=== PATIENT | female | born 1985 | race Caucasian/White ===

== ENCOUNTER 2023-09-08 21:34 | Emergency (ER) | payer OTHER, SELFPAY ==
[2023-09-08 21:37] VITALS: BP 107/84; BMI 21.0
[2023-09-08 22:03] LABS: % Basophils 0.2 % (0-2); % Eosinophils 0.1 % (0-6); % Immature Granulocytes 0.4 % (0-0.5); % Lymphocytes 12.7 % (20.5-51.1); % Monocytes 4.1 % (1.7-9.3); % Neutrophils 82.5 % (42.2-75.2); Absolute Immature Granulocytes 0.1 10^3/uL (0-0.05); Absolute Lymphocytes 2.2 10^3/uL (1.2-3.4); Absolute Monocytes 0.7 10^3/uL (0.1-0.6); Absolute Neutrophils 14.3 10^3/uL (1.4-6.5); Hematocrit 43.5 % (37.0-47.0); Hemoglobin 15.1 g/dL (12.0-16.0); Mean Corp Hgb Conc. 34.7 g/dL (33.0-37.0); Mean Corpuscular Hgb 31.9 pg (27.0-31.0); Mean Platelet Volume 9.4 fL (7.4-10.4); Nucleated Red Blood Cells % 0 %; Platelet Count 321 10^3/uL (130-400); Red Blood Cell Count 4.73 10^6/uL (4.20-5.40); Red Cell Dist. Width 12.3 % (11.5-14.5); Urine Albumin Trace (Neg - Trace); Urine Bilirubin Negative (Negative); Urine Character Clear (Clear); Urine Color Yellow; Urine Glucose Negative (Negative); Urine Ketone Trace (Negative); Urine Leukocyte Trace (Negative); Urine Nitrite Negative (Negative); Urine Occult Blood Negative (Negative); Urine Specific Gravity 1.015 (<1.030); Urine Urobilinogen Negative (Neg - 1+); White Blood Cell Count 17.4 10^3/uL (4.8-10.8)
[2023-09-08 22:10] LABS: Urine Squamous Cell >30 /LPF (Few)
[2023-09-08 22:11] LABS: Urine Red Blood Cell None Seen /HPF (0-2); Urine White Cell 0-2 /HPF (0-5)
[2023-09-08 22:15] LABS: HCG, Serum Qualitative Screen Negative
[2023-09-08 22:16] LABS: Amphetamines Negative (Negative); Barbiturates Negative (Negative); Benzodiazepines Negative (Negative); Buprenorphine Negative (Negative); Cocaine Negative (Negative); Marijuana Positive (Negative); Methadone Negative (Negative); Methamphetamines Negative (Negative); Opiates Negative (Negative); Phencyclidine Negative (Negative); Tricyclic Antidepressants Negative (Negative)
[2023-09-08 22:18] LABS: Alcohol 22 mg/dl; Blood Urea Nitrogen 11 mg/dl (7-17); Calcium 9.2 mg/dl (8.4-10.2); Carbon Dioxide 28 mmol/L (22-30); Chloride 102 mmol/L (98-107); Estimated Creatinine Clearance 100 ml/min; Glucose 94 mg/dl (70-99); Sodium 142 mmol/L (135-145); eGFR > 60.00
--- NOTE | 2023-09-08 23:00 | ED.GENMED ---
History of Present Illness
General
Chief Complaint: Anxiety
Source: patient
Time Seen by Provider: 09/08/23 22:45
Travel History
Have you had any contact with someone who has COVID-19?: No
Do you have any symptoms of coronavirus? Fever > 100 degrees, chills, cough, shortness of breath, sore throat, loss of taste or smell, muscle aches, or headache?: No
History of Present Illness
History of Present Illness:
37 yr old female with reported anxiety leading to n/v an din ability to tolerate po. She has had similar episodes like this in past, always related to exacerbating anxiety. NO SI or HI, has seen therapist through [facility] in the past, declines
consultation with crisis team or referral to psychiatrist at this time. She feels that her symptoms are in part related to her anxiety but also related to her metabolism, and plans to see a supervisor [employer] shortly. She presents to the ED because she
wants to have some relief from her anxiety. She has a prior history of alcohol use disorder and states that she did have 1 drink last night, but called her sponsor and ex partner, and feels safe. She denies recent drug use with the exception of
marijuana Gummies to help ease her anxiety. She denies chest pain, shortness of breath, abdominal pain, back pain, headache, dizziness, or other physical complaints. She does however report repeated episodes of nonbloody vomiting.
Past History
Past History
ED Past Medical History: Psychiatric (Bipolar, Anxiety) and Other (Migraine headaches)
ED Past Surgical History: Tonsilectomy (And adnoids) and Other ()
Social History
Tobacco: Smoker
Alcohol: Former
Drug: Former user
Personal: Single
Living: other ([facility])
Employment: Employed
Family History
Family History: Other (no Significant)
Phy Exam
Physical Exam
Physical Exam:
GENERAL: Alert , in no apparent distress
EYE: pupils equal and reactive
NECK: Supple, no significant adenopathy.
ENT: o/p clr, mmm.
CARDIAC: Regular rate and rhythm .
LUNGS: Clear breath sounds bilaterally, no acute respiratory distress, no wheezes/rales/rhonchi
ABDOMEN: Soft, without focal tenderness, no r/g, no cvat
NEUROLOGICAL: Alert and oriented, no focal neuro deficits
SKIN: Warm and dry, skin intact.
MUSCULOSKELETAL: No edema, well perfused.
PSYCH: Tearful at times, anxious, denies SI or HI
Course
Orders/Labs/Results
Orders:
Orders
09/08/23 21:45
EKG [Electrocardiogram (*1)] Urgent
Reason for Study: Vertigo / Dizzy
EKG- Treatment ONCE
Test Result ONCE
09/08/23 21:47
Alcohol Urgent
Basic Metabolic Panel Urgent
Complete Blood Count/With Diff Urgent
HCG, Serum Qualitative Screen Urgent
UA [Urinalysis] Urgent
Date Specimen was Collected: 09/08/23
Time Specimen was Collected: 21:45
Urine Drug Abuse Screen Urgent
Date Specimen was Collected: 09/08/23
Time Specimen was Collected: 21:45
Urine Microscopic Urgent
Date Specimen was Collected: 09/08/23
Time Specimen was Collected: 21:45
09/08/23 22:59
Lorazepam [Ativan] 1 mg PO NOW STA
Abnormal Lab Results
09/08/23
21:47
WBC 17.4 H 10^3/uL
(4.8-10.8)
MCH 31.9 H pg
(27.0-31.0)
Abs Immat Gran (auto) 0.1 H 10^3/uL
(0-0.05)
Absolute Neuts (auto) 14.3 H 10^3/uL
(1.4-6.5)
Absolute Monos (auto) 0.7 H 10^3/uL
(0.1-0.6)
Neutrophils % 82.5 H %
(42.2-75.2)
Lymphocytes % 12.7 L %
(20.5-51.1)
Urine Ketones Trace A
(Negative)
Ur Leukocyte Esterase Trace A
(Negative)
U Marijuana (THC) Screen Positive H
(Negative)
09/08/23 21:47
09/08/23 21:47
Vital Signs
Initial and Last Documented VS:
Initial Vital Signs
Temp Pulse Resp BP Pulse Ox
98.5 F 75 16 107/84 99
09/08/23 21:37 09/08/23 21:37 09/08/23 21:37 09/08/23 21:37 09/08/23 21:37
Last Documented Vital Signs
Temp Pulse Resp BP Pulse Ox
98.5 F 72 18 107/84 99
09/08/23 21:37 09/09/23 01:10 09/09/23 01:10 09/08/23 21:37 09/09/23 01:10
*Critical Care Note
Total Time (30-74mins, 75-104mins- exclusive of procedures): Not Applicable
Update Note
Update Note:
Patient presents to the Emergency Department with
Number and Complexity of Problems Addressed at the Encounter
� Chronic conditions affecting care:
� Acute Exacerbation and/or Progression of Chronic Illness:
� Differential Diagnosis includes:
Amount and/or Complexity of Data to be Reviewed and Analyzed
� I performed an independent evaluation of and my interpretation is:
EKG:
CT:
Xrays:
Laboratory Studies: Nonspecific white blood cell count elevation, no fever, tenderness, or other specific findings to suggest infection.
Other:
� Review of other/old records reveals:
� Clinical information was obtained by an independent historian:
� Prescriptions/Medications Considered but not given:
� Further testing considered but not performed:
Risk of Complications and/or Morbidity or Mortality of Patient Management
� Social determinants of health affecting care:
� Discussion with other providers (PCP, Hospitalists, Consultants, etc):
� Escalation of care including admission/observation vs risk of discharge considered: Discussed with patient options to treat anxiety and nausea� She elects a one-time dose of Ativan here until she can see her doctor tomorrow.
She again denies SI or HI and declines crisis. I highly doubt pancreatitis as a cause of her reported vomiting as patient does not have any pain, and no further vomiting noted after dose of Ativan here. (She does not want to wait for a lipase
level here.) No acute abdominal findings noted, no signs or symptoms to suggest increased intracranial pressure. Patient seems to be certain that her ongoing anxiety is a trigger for this vomiting. Discussed with her the importance of follow-up
and reasons to return the emergency department.
ED Attending Note
-
Portions of this chart may have been created with voice recognition software.� Occasional wrong word or��sound alike� substitutions may have occurred due to the inherent limitations of voice recognition software.
Discharge Plan
Departure
Patient Disposition: Home (Routine Discharge)
Date of Disposition: 09/09/23
Time of Disposition: 00:46
Patient with high blood pressure during this ER visit?: Yes
Condition: Good
Discharge Problem:
Vomiting, Anxiety
Instructions: Anxiety, Adult (DC), BLOOD PRESSURE, Acute Nausea and Vomiting
Prescriptions:
No Action
No Current Medications
0
Referrals:
NONE,* [Family Provider] -
Activity Restrictions/Additional Instructions:
PLEASE SEE YOUR DOCTOR TOMORROW. IF YOU DEVELOP ABDOMINAL PAIN, CHEST PAIN, TROUBLE BREATHING, DIZZINESS, FEVER, OR OTHER WORRISOME SIGNS, PLEASE RETURN TO THE ER IMMEDIATELY. IF YOU HAVE THOUGHTS OF WANTING TO , PLEASE CALL 911.
Interventions
Interventions:
*Risk Screen - Suicide Last Done: 09/08/23 21:37
*General Assessment Last Done: 09/09/23 01:10
*Neglect/Abuse Screening Last Done: 09/08/23 21:37
ED- Fall Risk Assessment Last Done: 09/08/23 21:37
*ED COVID-19 Vaccine History Last Done: 09/08/23 21:37
*Nursing Disposition Last Done: 09/09/23 01:10
ED-Psychological Assessment Last Done: 09/08/23 23:15
Discharge Date and Time
Discharge Date/Time: 09/09/23 01:17
[2023-09-08] MEDS: ATIVAN 1 MG PO (23:12)
== END 2023-09-09 01:17 | disposition home or self-care (01) ==
LOC: EMR 21:34
PROVIDERS: Emergency Medicine; EMERGENCY PHYSICIAN Emergency Medicine
DX: F41.9 Anxiety disorder, unspecified (principal); R11.2 Nausea with vomiting, unspecified; F17.200 Nicotine dependence, unspecified, uncomplicated
CPT/HCPCS: 99284; 80048; 80306; 81003; 81015; 82077; 84703; 85025; 93005

== ENCOUNTER 2023-10-19 16:22 | Emergency (ER) | payer OTHER, BC, SELFPAY ==
[2023-10-19 16:35] VITALS: BP 136/83
[2023-10-19 16:53] LABS: % Basophils 0.2 % (0-2); % Eosinophils 0.2 % (0-6); % Immature Granulocytes 0.1 % (0-0.5); % Lymphocytes 28.3 % (20.5-51.1); % Monocytes 5.2 % (1.7-9.3); Absolute Lymphocytes 2.5 10^3/uL (1.2-3.4); Absolute Monocytes 0.5 10^3/uL (0.1-0.6); Absolute Neutrophils 5.8 10^3/uL (1.4-6.5); Hematocrit 42.5 % (37.0-47.0); Hemoglobin 14.9 g/dL (12.0-16.0); Mean Corp Hgb Conc. 35.1 g/dL (33.0-37.0); Mean Corpuscular Volume 91.2 fL (81.0-99.0); Mean Platelet Volume 9.7 fL (7.4-10.4); Nucleated Red Blood Cells % 0 %; Platelet Count 291 10^3/uL (130-400); Red Blood Cell Count 4.66 10^6/uL (4.20-5.40); Red Cell Dist. Width 11.9 % (11.5-14.5); White Blood Cell Count 8.8 10^3/uL (4.8-10.8)
[2023-10-19 17:04] LABS: HCG, Serum Qualitative Screen Negative
[2023-10-19 17:09] LABS: ALT (SGPT) 17 U/L (0-35); AST (SGOT) 21 U/L (14-36); Albumin 4.7 g/dl (3.5-5.0); Alkaline Phosphatase 38 U/L (38-126); Blood Urea Nitrogen 14 mg/dl (7-17); Calcium 9.4 mg/dl (8.4-10.2); Carbon Dioxide 26 mmol/L (22-30); Glucose 121 mg/dl (70-99); Sodium 139 mmol/L (135-145); Total Bilirubin 0.5 mg/dl (0.2-1.3); Total Protein 7.2 g/dl (6.3-8.2); eGFR > 60.00
[2023-10-19 17:10] LABS: Lipase 88 U/L (23-300)
[2023-10-19 17:13] LABS: Chloride 105 mmol/L (98-107)
[2023-10-19] MEDS: OMNIPAQUE 50 ML PO (18:04)
--- NOTE | 2023-10-19 18:45 | ED.GENMED ---
History of Present Illness
General
Chief Complaint: Abdominal Pain
Source: patient
Exam Limitations: none
Time Seen by Provider: 10/19/23 17:47
Travel History
Have you had any contact with someone who has COVID-19?: No
Do you have any symptoms of coronavirus? Fever > 100 degrees, chills, cough, shortness of breath, sore throat, loss of taste or smell, muscle aches, or headache?: No
History of Present Illness
History of Present Illness:
38-year-old female recurrent episodes of epigastric discomfort nausea and vomiting. Typically is worse after a infectious issue. Has been worse the last week. But has been intermittently in the past also. Denies back pain fever. No significant
change in bowels.
Past History
Past History
ED Past Medical History: Psychiatric (Bipolar, Anxiety) and Other (Migraine headaches)
ED Past Surgical History: Tonsilectomy (And adnoids) and Other ()
Social History
Tobacco: Smoker
Alcohol: Former
Drug: Former user
Personal: Single
Living: other ([facility] house)
Employment: Employed
Family History
Family History: Other (no Significant)
Review of Systems
Review of Systems
All Other Systems: Not applicable
Respiratory: Reports no symptoms
Cardiac: Reports no symptoms
: Reports no symptoms
Phy Exam
Physical Exam
Physical Exam:
GENERAL: Alert and oriented in no apparent distress
EYE: Orbits normal.
NECK: Supple
CARDIAC: Regular rate and rhythm without any obvious murmurs.
LUNGS: Clear breath sounds,normal
ABDOMEN: Soft, minimal epigastric tenderness. No rebound or guarding no mass or hernia
NEUROLOGICAL: Alert and oriented , grossly non-focal
SKIN: Warm and dry, no rash or lesion, no discoloration, skin intact.
MUSCULOSKELETAL: No edema,no deformity.Good color
PSYCH: Normal and appropriate interaction.
Course
Orders/Labs/Results
Orders:
Orders
10/19/23 16:39
Test Result ONCE
10/19/23 16:44
CMP [Comprehensive Metabolic Panel] Urgent
Complete Blood Count/With Diff Urgent
HCG, Serum Qualitative Screen Urgent
Lipase Urgent
10/19/23 17:55
IV Insert/Care/Rem.- Treatment PRN
Iohexol [Omnipaque] See Protocol PO NOW STA
10/19/23 17:56
CT Abd/pel W Iv And Oral Contr Urgent
Comment:
Reason For Exam: Upper abdominal pain
US Abdomen Limited Urgent
Comment:
Reason For Exam: Evaluate gallbladder upper abdominal pain
10/19/23 18:00
Iohexol [Omnipaque] 50 ml .ROUTE .STK-MED ONE
Abnormal Lab Results
10/19/23
16:44
MCH 32.0 H pg
(27.0-31.0)
Glucose 121 H mg/dl
(70-99)
10/19/23 16:44
10/19/23 16:44
Vital Signs
Initial and Last Documented VS:
Initial Vital Signs
Temp Pulse Resp BP Pulse Ox
97.9 F 93 16 136/83 100
10/19/23 16:35 10/19/23 16:35 10/19/23 16:35 10/19/23 16:35 10/19/23 16:35
Last Documented Vital Signs
Temp Pulse Resp BP Pulse Ox
97.9 F 90 18 122/95 100
10/19/23 16:35 10/19/23 21:28 10/19/23 21:28 10/19/23 21:28 10/19/23 21:28
*Radiology
Radiology exam reviewed: radiology read reviewed (Negative ultrasound. Negative CT)
*Pulse Oximetry
Patient hypoxic: no
*Critical Care Note
Total Time (30-74mins, 75-104mins- exclusive of procedures): Not Applicable
Update Note
Update Note:
Will treat for gastritis to follow-up. Patient medically stable
ED Attending Note
-
Portions of this chart may have been created with voice recognition software.� Occasional wrong word or��sound alike� substitutions may have occurred due to the inherent limitations of voice recognition software.
Discharge Plan
Departure
Patient Disposition: Home (Routine Discharge)
Date of Disposition: 10/19/23
Time of Disposition: 21:29
Patient with high blood pressure during this ER visit?: Yes
Discharge Problem:
Recurrent epigastric pain, Recurrent vomiting
Instructions: Nausea and Vomiting, Adult (DC), Abdominal Pain
Prescriptions:
New
pantoprazole [Protonix] 40 mg tablet,delayed release (DR/EC)
40 mg PO DAILY 28 Days Qty: 28 0RF
ondansetron 4 mg tablet,disintegrating
4 mg PO TIDPRN PRN (Reason: nausea/vomiting) Qty: 14 0RF
Referrals:
Arash Branch, [Family Provider] - Follow up in 2-3 days
Rebecca Prater DO [Active] - Next open appointment
Interventions
Interventions:
*Risk Screen - Suicide Last Done: 10/19/23 16:35
*General Assessment Last Done: 10/19/23 20:13
*Neglect/Abuse Screening Last Done: 10/19/23 16:35
ED- Fall Risk Assessment Last Done: 10/19/23 21:38
*ED COVID-19 Vaccine History Last Done: 10/19/23 16:35
*Nursing Disposition Last Done: 10/19/23 21:38
TL-Flsejg-Trxdkvdrda Assessment Last Done: 10/19/23 18:05
Discharge Date and Time
Discharge Date/Time: 10/19/23 21:38
[2023-10-19 21:28] VITALS: BP 122/95
== END 2023-10-19 21:38 | disposition home or self-care (01) ==
LOC: EMR 16:22
PROVIDERS: Emergency Medicine; EMERGENCY PHYSICIAN Emergency Medicine; FAMILY PHYSICIAN Internal Medicine
DX: R10.13 Epigastric pain (principal); R11.2 Nausea with vomiting, unspecified; F31.9 Bipolar disorder, unspecified; F41.9 Anxiety disorder, unspecified; F17.200 Nicotine dependence, unspecified, uncomplicated
CPT/HCPCS: 99284; 74177; 76705; 80053; 83690; 84703; 85025; Q9967

== ENCOUNTER 2024-07-22 09:32 | Emergency (ER) | payer SELFPAY ==
[2024-07-22 09:51] VITALS: BP 140/83
--- NOTE | 2024-07-22 11:08 | EDRN ---
Patient was brought into the room from the and requested to go to the bathroom. Given a cup to provide urine. Came out of the room about 10 minutes later requesting water as she is unable to urinate at this time. She states this is unusual for
her. Provided ice water for the patient.
--- NOTE | 2024-07-22 11:26 | ED.GENMED ---
History of Present Illness
General
Chief Complaint: Alcohol Problem
Time Seen by Provider: 07/22/24 10:56
History of Present Illness
History of Present Illness:
Patient is a 38-year-old woman with history of alcohol use disorder presenting to the emergency department requesting detox. Patient states that she uses alcohol for coping mechanisms. Drinks a few seltzers a day. Her last drink was 8 AM. She
states every morning around 4 AM she feels that she is going through withdrawal she drinks bursting in the morning. She has had withdrawal seizures in the past before. None recently. She has gone to detox before. She does currently live in a
safe environment. She is requesting help with her withdrawal. Denies any drug use. She does state that she feels like her inflammation is acting up. She states that last time this happened she had Lyme. She also thinks that she is slightly
dehydrated and her electrolytes may be off with the amount of drinking. Patient does state that last month she used Plan B. She is unsure when her last period was. No fevers chills chest pain shortness of breath. Currently no nausea vomiting
diarrhea or abdominal pain.
Past History
Past History
ED Past Medical History: Psychiatric (Bipolar, Anxiety) and Other (Migraine headaches)
ED Past Surgical History: Tonsilectomy (And adnoids) and Other ()
Social History
Tobacco: Smoker
Alcohol: Former
Drug: Former user
Personal: Single
Living: other ([facility] house)
Employment: Employed
Family History
Family History: Other (no Significant)
Phy Exam
Physical Exam
Physical Exam:
GENERAL: in no acute distress
HEENT: normocephalic, extraocular movements intact, moist oral mucosa
NECK: normal inspection
RESPIRATORY: no respiratory distress, clear to auscultation bilaterally
CARDIOVASCULAR: regular rate and rhythm
ABDOMEN/: soft, non-distended, non-tender to palpation, no rebound or guarding
EXTREMITIES: non-tender, no edema/swelling
NEUROLOGIC: awake and alert, moves all extremities
SKIN: warm
Scores
Withdrawal Assessment of Alcohol
Withdrawal Assessment Completed?: Yes
Nausea and Vomiting: No nausea and no vomiting
Tactile Disturbances: None
Tremor: No tremor
Auditory Disturbances: Not present
Paroxysmal Sweats: No sweat visible
Visual Disturbances: Not present
Anxiety: Mild anxiety
Headache, Fullness in Head: Not present
Agitation: Normal activity
Orientation and clouding of sensorium: Oriented and can do serial additions
Total CIWA Score: 1
Alcohol Withdrawal Medication Recommendation: Equal to MSAS Score 0-4. Monitor & re-assess q2hrs, NO MEDICATION NEEDED
Course
Orders/Labs/Results
Orders:
Orders
07/22/24 11:22
0.9% Sodium Chloride [Nss (Preservative Free)] See Protocol IV PRN PRN
Lorazepam [Ativan] 1 mg IV Q1HPRN PRN
Lorazepam [Ativan] 1 mg PO Q2HPRN PRN
Lorazepam [Ativan] 2 mg IV Q1HPRN PRN
Test Result ONCE
07/22/24 12:23
Alcohol Urgent
Basic Metabolic Panel Urgent
Beta Hcg Urine Qualitative Screen [HCG, Urine Qualitative Screen] Urgent
Date Specimen was Collected: 07/22/24
Time Specimen was Collected: 11:26
Complete Blood Count/With Diff Urgent
Fentanyl, Urine Urgent
Lyme Progressive Urgent
Magnesium Urgent
Urine Drug Abuse Screen Routine
Date Specimen was Collected: 07/22/24
Time Specimen was Collected: 11:26
Abnormal Lab Results
07/22/24
12:23
MCH 34.4 H pg
(27.0-31.0)
Abs Immat Gran (auto) 0.1 H 10^3/uL
(0-0.05)
Absolute Monos (auto) 0.7 H 10^3/uL
(0.1-0.6)
Immature Gran % 1.4 H %
(0-0.5)
Creatinine 0.5 L mg/dL
(0.6-1.0)
Ur Amphetamines Screen Positive H
(Negative)
U Marijuana (THC) Screen Positive H
(Negative)
07/22/24 12:23
07/22/24 12:23
Vital Signs
Initial and Last Documented VS:
Initial Vital Signs
Temp Pulse Resp BP Pulse Ox
98.3 F 85 16 140/83 98
07/22/24 09:51 07/22/24 09:51 07/22/24 09:51 07/22/24 09:51 07/22/24 09:51
Last Documented Vital Signs
Temp Pulse Resp BP Pulse Ox
98.3 F 85 20 127/73 98
07/22/24 09:51 07/22/24 15:45 07/22/24 15:45 07/22/24 15:35 07/22/24 15:45
MDM/Problems Addressed
Differential Diagnosis Includes:
Patient is a 38-year-old woman with history of alcohol use disorder presenting to the emergency department requesting detox. Vitals are unremarkable and exam is reassuring. Regarding patient's concern for inflammation will check Lyme screen. Will
also check basic blood work to evaluate for any metabolic. Will start her on the alcohol withdrawal protocol. Will discuss with Maia bañuelos. Will check test
*Critical Care Note
Total Time (30-74mins, 75-104mins- exclusive of procedures): Not Applicable
Update Note
Update Note:
On reevaluation patient's MCS score is 0. Blood work is unremarkable. UDS is positive for amphetamine as well as marijuana. [facility] cares evaluated patient and patient has been accepted to a facility. Will discharge at this time.
ED Attending Note
-
Portions of this chart may have been created with voice recognition software.� Occasional wrong word or��sound alike� substitutions may have occurred due to the inherent limitations of voice recognition software.
Discharge Plan
Departure
Patient Disposition: Acute Rehab Facility
Date of Disposition: 07/22/24
Time of Disposition: 15:58
Discharge Problem:
Alcohol use
Instructions: Alcohol Use Disorder (DC)
Prescriptions:
No Action
pantoprazole [Protonix] 40 mg tablet,delayed release (DR/EC)
40 mg PO DAILY 28 Days Qty: 28 0RF
ondansetron 4 mg tablet,disintegrating
4 mg PO TIDPRN PRN (Reason: nausea/vomiting) Qty: 14 0RF
Referrals:
Arash Branch DO [Family Provider] -
Interventions
Interventions:
*Risk Screen - Suicide Last Done: 07/22/24 09:33
*General Assessment Last Done: 07/22/24 11:22
*Neglect/Abuse Screening Last Done: 07/22/24 09:51
ED- Fall Risk Assessment Last Done: 07/22/24 11:22
ED- Neurological Assessment Last Done: 07/22/24 11:22
ED-Psychological Assessment Last Done: 07/22/24 11:22
Discharge Date and Time
Print Language: UKRAINIAN
[2024-07-22 12:59] LABS: % Basophils 0.3 % (0-2); % Eosinophils 0.5 % (0-6); % Immature Granulocytes 1.4 % (0-0.5); % Lymphocytes 29.4 % (20.5-51.1); % Monocytes 7.4 % (1.7-9.3); Absolute Eosinophils 0.1 10^3/uL (0-0.7); Absolute Immature Granulocytes 0.1 10^3/uL (0-0.05); Absolute Lymphocytes 2.7 10^3/uL (1.2-3.4); Absolute Monocytes 0.7 10^3/uL (0.1-0.6); Absolute Neutrophils 5.6 10^3/uL (1.4-6.5); Hematocrit 44.1 % (37.0-47.0); Hemoglobin 15.6 g/dL (12.0-16.0); Mean Corp Hgb Conc. 35.4 g/dL (33.0-37.0); Mean Corpuscular Hgb 34.4 pg (27.0-31.0); Mean Corpuscular Volume 97.4 fL (81.0-99.0); Mean Platelet Volume 9.3 fL (7.4-10.4); Nucleated Red Blood Cells % 0 %; Platelet Count 273 10^3/uL (130-400); Red Blood Cell Count 4.53 10^6/uL (4.20-5.40); Red Cell Dist. Width 12.2 % (11.5-14.5); White Blood Cell Count 9.2 10^3/uL (4.8-10.8)
[2024-07-22 13:05] LABS: HCG, Urine Qualitative Screen Negative
[2024-07-22 13:11] LABS: Alcohol 88 mg/dl; Blood Urea Nitrogen 12 mg/dl (7-17); Calcium 9.3 mg/dl (8.4-10.2); Carbon Dioxide 24 mmol/L (22-30); Chloride 102 mmol/L (98-107); Glucose 86 mg/dl (70-99); Magnesium 1.9 mg/dl (1.6-2.3); Potassium 4.1 mmol/L (3.5-5.1); Sodium 137 mmol/L (135-145); eGFR > 60.00
[2024-07-22 13:12] VITALS: BP 115/75
[2024-07-22 13:15] LABS: Amphetamines Positive (Negative); Barbiturates Negative (Negative); Benzodiazepines Negative (Negative); Buprenorphine Negative (Negative); Cocaine Negative (Negative); Marijuana Positive (Negative); Methadone Negative (Negative); Methamphetamines Negative (Negative); Opiates Negative (Negative); Phencyclidine Negative (Negative); Tricyclic Antidepressants Negative (Negative)
[2024-07-22 13:40] LABS: Fentanyl, Urine Negative (Negative)
[2024-07-22 14:00] VITALS: BP 118/69
[2024-07-22 15:35] VITALS: BP 127/73
[2024-07-22] MEDS: ATIVAN 1 MG PO (15:52)
[2024-07-24 15:57] LABS: Lyme Antibody Screen, EIA Presump. Positive (Negative)
== END 2024-07-22 16:00 ==
LOC: EMR 09:32
PROVIDERS: EMERGENCY PHYSICIAN Student in an Organized Health Care Education/Training Program; FAMILY PHYSICIAN Internal Medicine
DX: F10.10 Alcohol abuse, uncomplicated (principal); F31.9 Bipolar disorder, unspecified; F17.200 Nicotine dependence, unspecified, uncomplicated
CPT/HCPCS: 99283; 80048; 80306; 80307; 81025; 82077; 83735; 85025; 86617; 86618

== ENCOUNTER 2024-08-19 15:00 | Emergency (ER) | payer OTHER, SELFPAY ==
[2024-08-19 15:00] VITALS: BMI 19.8
[2024-08-19 15:10] VITALS: BP 118/88
--- NOTE | 2024-08-19 15:10 | ED.GENMED ---
ED Provider Triage
<Michele Pardo PA-C - Last Filed: 08/19/24 15:11>
-
Patient seen by provider in Triage?: Seen in Triage
Attestation: A medical screening examination has been initiated by a qualified medical provider. Based on the assessment performed at this time, it has been determined that an emergent medical condition may exist and the patient has been informed
that further medical evaluation and possible additional diagnostic testing may be needed.
HPI: 38-year-old female presenting to the ER for evaluation of head injury sustained while intoxicated. Patient states she does not know how the head injury occurred. States has a headache continued. Believes the head injury happened 2 days ago.
Notes that she drank prior to arrival. She does admit to being currently intoxicated. Was recently seen here at this facility and in 10 days at a detox facility. She does have potential interest of going back to detox facility. Given
intoxication CT of the head and cervical spine ordered. Labs ordered.
GENERAL: Alert , in no apparent distress
EYE: No visual abnormalities.
NECK: Trachea midline
ENT: No visible abnormalities.
LUNGS: No acute respiratory distress
NEUROLOGICAL: Alert and oriented
SKIN: Skin intact. No visible changes.
MUSCULOSKELETAL: Moving extremities normally
PSYCH: Normal and appropriate interaction.
This is a medical evaluation conducted in person to initiate diagnostic evaluation and provide initial therapeutics. Please see further documentation by the treating clinician.
History of Present Illness
<Michele Pardo PA-C - Last Filed: 08/19/24 15:11>
General
Chief Complaint: Head Injury
Time Seen by Provider: 08/19/24 18:46
<Jenni Chua PA-C - Last Filed: 08/20/24 00:37>
General
Source: patient
Exam Limitations: none
Nursing documentation reviewed up to this point in time: agreed with
History of Present Illness
History of Present Illness:
38 y/o F ADHD, substance abuse, alcoholism, homelessness
here with request for detox
pt says that she started drinking for 3 days on a binge and while intoxicated she thinks she fell or something because she has abrasions on her face and legs
she has a headache
last drink was around 1 pm
she says she binged throughout the day and night for 3 days
she is just starting to feel alcohol withdrawal symptoms
has had alcohol withdrawal seizure before
mild headache
some photophoiba, mild anxiety
no halluncaitons, no fever, no wekaness, no vomiting
is requeisnt to eat/drink
no abdomiank pain
no macrina kpain
Past History
<Michele Pardo PA-C - Last Filed: 08/19/24 15:11>
Past History
ED Past Medical History: Psychiatric (Bipolar, Anxiety) and Other (Migraine headaches)
ED Past Surgical History: Tonsilectomy (And adnoids) and Other ()
Social History
Tobacco: Smoker
Alcohol: Former
Drug: Former user
Personal: Single
Living: other ([facility])
Employment: Employed
Family History
Family History: Other (no Significant)
Review of Systems
<Jenni Chua PA-C - Last Filed: 08/20/24 00:37>
Review of Systems
Allergies reviewed?: Yes
All Other Systems: Not applicable
Phy Exam
<BALDEMAR Aguiar Last Filed: 08/20/24 00:37>
Physical Exam
Physical Exam:
GENERAL: Alert , in no apparent distress
HEAD: superpfical abrasions to forehead and face;
NECK: no midline tenderness, active ROM intact, no paraspinal muscle tenderness;
EYE: pupils equal and reactive, EOMs intact.
ENT: o/p clr, mmm. no hemotympanum
CARDIAC: Regular rate and rhythm, no edema
LUNGS: Clear breath sounds bilaterally, no acute respiratory distress, no wheezes/rales/rhonchi
ABDOMEN: Soft, without focal tenderness, no r/g, no cvat
NEUROLOGICAL: Alert and oriented, no focal neuro deficits, CN intact, 5/5 strength, sensation intact
SKIN: Warm and dry, abrasions knees and face; bruise to L shoulder
MUSCULOSKELETAL: No edema, well perfused.
painful but full ROM of the shoulser left
normal knee and hip/pelvis ROM
PSYCH: Normal and appropriate interaction. intoxicated mildly
Course
<Michele Pardo PA-C - Last Filed: 08/19/24 15:11>
Orders/Labs/Results
Orders:
Orders
08/19/24 15:09
CT Cervical Spine W/o Iv Contr Urgent
Comment:
Reason For Exam: ETOH, head injury
CT Head W/o Iv Contrast Urgent
Comment:
Reason For Exam: head injury, ETOH
08/19/24 15:18
Alcohol Urgent
Complete Blood Count/With Diff Urgent
Comprehensive Metabolic Panel Urgent
Manual Differential Urgent
08/19/24 19:59
Lorazepam [Ativan] 1 mg IV NOW STA
08/19/24 20:00
Dextrose 5%/0.9%Sodchl 1000 ml [D5/0.9% Sodium Chloride] 1,000 ml IV Wide Open mls/hr
08/19/24 21:10
Nicotine [Nicoderm Transdermal] 14 mg TRANSDERM NOW STA
08/19/24 21:55
CR Shoulder, Trauma - Left Urgent
Comment:
Reason For Exam: left shoulderp ain after possible fall
08/20/24 08:00
Nicotine [Nicoderm Transdermal] 14 mg TRANSDERM DAILY
Abnormal Lab Results
08/19/24
15:18
WBC 13.1 H 10^3/uL
(4.8-10.8)
Hgb 16.5 H g/dL
(12.0-16.0)
Hct 47.1 H %
(37.0-47.0)
MCH 33.4 H pg
(27.0-31.0)
RDW 11.2 L %
(11.5-14.5)
Chloride 97 L mmol/L
(98-107)
Carbon Dioxide 16 L mmol/L
(22-30)
AST 69 H U/L
(14-36)
ALT 42 H U/L
(0-35)
Albumin 5.5 H g/dl
(3.5-5.0)
08/19/24 15:18
08/19/24 15:18
Vital Signs
Initial and Last Documented VS:
Initial Vital Signs
Temp Pulse Resp BP Pulse Ox
36.8 C 105 16 118/88 98
08/19/24 15:10 08/19/24 15:10 08/19/24 15:10 08/19/24 15:10 08/19/24 15:10
Last Documented Vital Signs
Temp Pulse Resp BP Pulse Ox
36.7 C 116 21 133/82 95
08/19/24 18:00 08/19/24 23:00 08/19/24 23:00 08/19/24 23:00 08/19/24 23:00
<Jenni Chua PA-C - Last Filed: 08/20/24 00:37>
Orders/Labs/Results
Orders:
Orders
08/19/24 15:09
CT Cervical Spine W/o Iv Contr Urgent
Comment:
Reason For Exam: ETOH, head injury
CT Head W/o Iv Contrast Urgent
Comment:
Reason For Exam: head injury, ETOH
08/19/24 15:18
Alcohol Urgent
Complete Blood Count/With Diff Urgent
Comprehensive Metabolic Panel Urgent
Manual Differential Urgent
08/19/24 19:59
Lorazepam [Ativan] 1 mg IV NOW STA
08/19/24 20:00
Dextrose 5%/0.9%Sodchl 1000 ml [D5/0.9% Sodium Chloride] 1,000 ml IV Wide Open mls/hr
08/19/24 21:10
Nicotine [Nicoderm Transdermal] 14 mg TRANSDERM NOW STA
08/19/24 21:55
CR Shoulder, Trauma - Left Urgent
Comment:
Reason For Exam: left shoulderp ain after possible fall
08/20/24 08:00
Nicotine [Nicoderm Transdermal] 14 mg TRANSDERM DAILY
Abnormal Lab Results
08/19/24
15:18
WBC 13.1 H 10^3/uL
(4.8-10.8)
Hgb 16.5 H g/dL
(12.0-16.0)
Hct 47.1 H %
(37.0-47.0)
MCH 33.4 H pg
(27.0-31.0)
RDW 11.2 L %
(11.5-14.5)
Chloride 97 L mmol/L
(98-107)
Carbon Dioxide 16 L mmol/L
(22-30)
AST 69 H U/L
(14-36)
ALT 42 H U/L
(0-35)
Albumin 5.5 H g/dl
(3.5-5.0)
08/19/24 15:18
08/19/24 15:18
Vital Signs
Initial and Last Documented VS:
Initial Vital Signs
Temp Pulse Resp BP Pulse Ox
36.8 C 105 16 118/88 98
08/19/24 15:10 08/19/24 15:10 08/19/24 15:10 08/19/24 15:10 08/19/24 15:10
Last Documented Vital Signs
Temp Pulse Resp BP Pulse Ox
36.7 C 116 21 133/82 95
08/19/24 18:00 08/19/24 23:00 08/19/24 23:00 08/19/24 23:00 08/19/24 23:00
<Jenni Chua PA-C - Last Filed: 08/20/24 00:37>
MDM/Problems Addressed
Differential Diagnosis Includes:
alcohol intoxicated, detox, withdrawal, fall,, concussion
MDM/Problems Addressed:
38 y/o F
alcohol dependence
h/o withdrwawal seizure
binged for 3 days and blacked out and has abrsions to face and knees and bruise to shoulder
no recollection of what happened
says she was staying with a rohit and she got upset so she s tarted drinking
has headache and feels like she may have concussion
head/neck ct neg
labs show AG 23
she has serum alcohol 250
probably not true aka since pt is toerlating po and not vomiting, this is probably just alcohol causing her anion gap
pt got dextrose IVF and ate a meal here, drank liquids and tolerated
trated with ativan for low CIWA
seen by ariana bañuelos
accepted to [facility]
d/c
<Jenni Chua PA-C - Last Filed: 08/20/24 00:37>
*Critical Care Note
Total Time (30-74mins, 75-104mins- exclusive of procedures): Not Applicable
ED Attending Note
<Michele Pardo PA-C - Last Filed: 08/19/24 15:11>
-
Portions of this chart may have been created with voice recognition software.� Occasional wrong word or��sound alike� substitutions may have occurred due to the inherent limitations of voice recognition software.
Discharge Plan
Departure
Patient Disposition: Home (Routine Discharge)
Date of Disposition: 08/19/24
Time of Disposition: 23:19
Patient with high blood pressure during this ER visit?: No
Condition: Fair
Covid-19: Not Applicable
Discharge Problem:
Alcohol intoxication, Dehydration, request for detox
Instructions: Concussion, Adult ED, Alcohol use disorder - Discharge instructions
Prescriptions:
No Action
pantoprazole [Protonix] 40 mg tablet,delayed release (DR/EC)
40 mg PO DAILY 28 Days Qty: 28 0RF
ondansetron 4 mg tablet,disintegrating
4 mg PO TIDPRN PRN (Reason: nausea/vomiting) Qty: 14 0RF
Referrals:
Arash Branch, [Family Provider] - Follow up in 2-3 days
Activity Restrictions/Additional Instructions:
YOU PROBALBY HAVE A MILD CONCUSSION FROM HITTING YOUR HEAD
BUT YOUR CAT SCANS OF YOUR HEAD/NEKC AND XRAY OF YOUR SHOULDER WERE NORMAL
YOU EWRE DEHYDRATED BUT GIVEN IV FLUIDS
YOU WERE ACCEPTED AT [facility] FOR DETOX
RETURN FO [facility].
Interventions
Interventions:
*Risk Screen - Suicide Last Done: 08/19/24 15:10
*General Assessment Last Done: 08/19/24 19:59
*Neglect/Abuse Screening Last Done: 08/19/24 15:10
ED- Fall Risk Assessment Last Done: 08/19/24 23:16
*ED COVID-19 Vaccine History Last Done: 08/19/24 19:59
*Nursing Disposition Last Done: 08/19/24 23:16
ED- Neurological Assessment Last Done: 08/19/24 18:20
ED-Skin Assessment Last Done: 08/19/24 18:20
Discharge Date and Time
Discharge Date/Time: 08/19/24 23:34
Print Language: JORDANIAN
[2024-08-19 15:19] LABS: Glucose - Point of Care 92 mg/dl (70-99)
[2024-08-19 15:32] LABS: Hematocrit 47.1 % (37.0-47.0); Hemoglobin 16.5 g/dL (12.0-16.0); Mean Corpuscular Hgb 33.4 pg (27.0-31.0); Mean Corpuscular Volume 95.3 fL (81.0-99.0); Mean Platelet Volume 8.9 fL (7.4-10.4); Platelet Count 311 10^3/uL (130-400); Red Blood Cell Count 4.94 10^6/uL (4.20-5.40); Red Cell Dist. Width 11.2 % (11.5-14.5); White Blood Cell Count 13.1 10^3/uL (4.8-10.8)
[2024-08-19 15:49] LABS: ALT (SGPT) 42 U/L (0-35); AST (SGOT) 69 U/L (14-36); Albumin 5.5 g/dl (3.5-5.0); Alcohol 252 mg/dl; Alkaline Phosphatase 52 U/L (38-126); Blood Urea Nitrogen 16 mg/dl (7-17); Calcium 9.3 mg/dl (8.4-10.2); Carbon Dioxide 16 mmol/L (22-30); Chloride 97 mmol/L (98-107); Glucose 91 mg/dl (70-99); Potassium 4.3 mmol/L (3.5-5.1); Sodium 139 mmol/L (135-145); Total Bilirubin 1.1 mg/dl (0.2-1.3); Total Protein 8.1 g/dl (6.3-8.2); eGFR > 60.00
[2024-08-19 15:51] LABS: Absolute Neutrophils -Man Diff 5.5 10^3/uL (1.4-6.5); Band Neutrophils 0 % (0-3); Lymphocytes 22 % (20-51); Monocytes 6 % (2-9); Normal RBC Morphology Yes; Platelets Checked Yes; Segmented Neutrophils 42 % (42-75)
[2024-08-19 15:52] LABS: Total Cells Counted 100
[2024-08-19 18:11] VITALS: BP 118/75
[2024-08-19 20:00] VITALS: BP 112/80
[2024-08-19] MEDS: D5/0.9% SODIUM CHLORIDE 1000 IV (20:08)
[2024-08-19] MEDS: ATIVAN 1 MG IV (20:13)
[2024-08-19 21:00] VITALS: BP 127/77
[2024-08-19] MEDS: NICODERM TRANSDERMAL 14 MG TRANSDERM (21:13)
[2024-08-19 22:00] VITALS: BP 108/62
[2024-08-19 23:00] VITALS: BP 133/82
== END 2024-08-19 23:34 | disposition home or self-care (01) ==
LOC: EMR 15:00
PROVIDERS: Physician Assistant Medical; EMERGENCY PHYSICIAN Emergency Medicine; FAMILY PHYSICIAN Internal Medicine
DX: S09.90XA Unspecified injury of head, initial encounter (principal); F10.129 Alcohol abuse with intoxication, unspecified; Y90.8 Blood alcohol level of 240 mg/100 ml or more; S00.81XA Abrasion of other part of head, initial encounter; S80.212A Abrasion, left knee, initial encounter; S80.211A Abrasion, right knee, initial encounter; S40.012A Contusion of left shoulder, initial encounter; E86.0 Dehydration; R51.9 Headache, unspecified; X58.XXXA Exposure to other specified factors, initial encounter; F90.9 Attention-deficit hyperactivity disorder, unspecified type; R56.9 Unspecified convulsions; F41.9 Anxiety disorder, unspecified; F31.9 Bipolar disorder, unspecified; F17.200 Nicotine dependence, unspecified, uncomplicated; F19.21 Other psychoactive substance dependence, in remission; Z88.8 Allergy status to other drugs, medicaments and biological substances; Z91.018 Allergy to other foods
CPT/HCPCS: 99285; 96365; 96375; 70450; 72125; 73030; 80053; 82077; 82962; 85025

== ENCOUNTER 2024-12-11 12:49 | Emergency (ER) | payer OTHER, SELFPAY ==
[2024-12-11 13:09] VITALS: BP 144/95
--- NOTE | 2024-12-11 13:33 | ED.GENMED ---
History of Present Illness
General
Chief Complaint: Alcohol Problem
Time Seen by Provider: 12/11/24 13:32
History of Present Illness
History of Present Illness:
TIME OF INITIAL ENCOUNTER: 1:35 PM
HPI: The patient is an alcoholic. She states she was binge drinking over the past 2 weeks. She had a period of being sober earlier. She does not want to be seen by [facility]. She does not want to go to with detox facility. She is looking to get
benzos (does not want barbiturates) to help with alcohol withdrawal symptoms. She has been having nausea and vomiting. There is no significant tremor. She does not have any hallucinations. She does report a history of alcohol withdrawal seizures.
EXAM:
GENERAL: Well appearing but appears upset, CIWA score 16
HEENT: Moist oral mucosa
CARDIOVASCULAR: No murmurs, normal heart rate, regular rhythm, No chest wall tenderness
PULMONARY: No respiratory distress, breath sounds are clear and equal
ABDOMEN: Soft with no peritoneal signs, no tenderness
NEUROLOGIC: Excellent strength all extremities, no coordination deficits
PSYCHIATRIC: Is somewhat anxious at and tearful at times
EXTREMITIES: Nontender, no edema, moves all extremities equally
SKIN: No rash, no lesions
NUMBER AND COMPLEXITY OF PROBLEMS ADDRESSED AT THE ENCOUNTER
� Chronic conditions affecting care: States that she is 'on the spectrum': Alcoholism
� Acute Exacerbation and/or Progression of Chronic Illness:
� Differential Diagnosis includes: Alcohol withdrawal, alcoholism, electrolyte abnormality, pancreatitis
AMOUNT AND/OR COMPLEXITY OF DATA TO BE REVIEWED AND ANALYZED
� I performed an independent evaluation of and my interpretation is:
EKG:
CT:
X-rays:
Laboratory Studies: Alcohol level 64, lipase normal, chemistries normal, minimal white count elevation but otherwise CBC unremarkable
Other:
� Review of other/old records: I reviewed records. The patient was seen here in the emerged part in August 2024. At that time the visit was alcohol related. At that time it was documented that she was recently had a detox
facility for 10 days. At that time she was accepted to the [facility].
� Clinical information was obtained by an independent historian: None needed
� Prescriptions/Medications Considered but not given:
� Further testing considered but not performed:
RISK OF COMPLICATIONS AND/OR MORBIDITY OR MORTALITY OF PATIENT MANAGEMENT
� Social determinants of health affecting care: Lives at home, is an alcoholic
� Discussion with other providers:
� Escalation of care including admission/observation vs risk of discharge considered: I offered and considered [facility]/rehab placement however the patient is not interested. She would like to try oral Ativan as an outpatient.
She feels she only needs 3 days or so. She states that she has required relatively low doses compared to others in the past 'because of my metabolism and genetics'.
ANY OTHER UPDATES:
3 PM: I have given the patient a very short course of benzos to help with alcohol withdrawal symptoms. She is not delirious currently and is well-appearing. CIWA score 16.
Past History
Past History
ED Past Medical History: Psychiatric (Bipolar, Anxiety) and Other (Migraine headaches)
ED Past Surgical History: Tonsilectomy (And adnoids) and Other ()
Social History
Tobacco: Smoker
Alcohol: Former
Drug: Former user
Personal: Single
Living: other (recovery house)
Employment: Employed
Family History
Family History: Other (no Significant)
Phy Exam
Physical Exam
Physical Exam:
See HPI
Scores
Withdrawal Assessment of Alcohol
Withdrawal Assessment Completed?: Yes
Nausea and Vomiting: Constant nausea, frequent dry heaves and vomiting
Tactile Disturbances: Very mild itching, pins and needles, burning or numbness
Tremor: Not visible, but can be felt fingertip to fingertip
Auditory Disturbances: Not present
Paroxysmal Sweats: No sweat visible
Visual Disturbances: Not present
Anxiety: Moderately anxious, or guarded, so anxiety is inferred
Headache, Fullness in Head: Very mild
Agitation: Normal activity
Orientation and clouding of sensorium: Oriented and can do serial additions
Total CIWA Score: 14
Alcohol Withdrawal Medication Recommendation: Equal to MSAS Score 5-7. Lorazepam 1mg IV or PO NOW & re-assess q2hrs
Course
Orders/Labs/Results
Orders:
Orders
12/11/24 13:35
Add On- LAB Urgent
Tests Added?: blood alcohol level
12/11/24 13:46
0.9% Sodium Chloride 1000 ml [Nss] 1,000 ml IV BOLUS
12/11/24 13:58
Alcohol Urgent
Complete Blood Count/With Diff Urgent
Comprehensive Metabolic Panel Urgent
Lipase Urgent
Abnormal Lab Results
12/11/24
13:58
WBC 11.5 H 10^3/uL
(4.8-10.8)
MCH 32.5 H pg
(27.0-31.0)
Absolute Neuts (auto) 7.4 H 10^3/uL
(1.4-6.5)
Absolute Monos (auto) 0.7 H 10^3/uL
(0.1-0.6)
Glucose 106 H mg/dl
(70-99)
Alkaline Phosphatase 31 L U/L
(38-126)
12/11/24 13:58
12/11/24 13:58
Vital Signs
Initial and Last Documented VS:
Initial Vital Signs
Temp Pulse Resp BP Pulse Ox
37.2 C 96 18 144/95 97
12/11/24 13:09 12/11/24 13:09 12/11/24 13:09 12/11/24 13:09 12/11/24 13:09
Last Documented Vital Signs
Temp Pulse Resp BP Pulse Ox
37.2 C 75 18 144/95 97
12/11/24 13:09 12/11/24 13:58 12/11/24 13:09 12/11/24 13:09 12/11/24 13:09
*Critical Care Note
Total Time (30-74mins, 75-104mins- exclusive of procedures): Not Applicable
ED Attending Note
-
Portions of this chart may have been created with voice recognition software.� Occasional wrong word or��sound alike� substitutions may have occurred due to the inherent limitations of voice recognition software.
Discharge Plan
Departure
Patient Disposition: Home (Routine Discharge)
Date of Disposition: 12/11/24
Time of Disposition: 14:53
Patient with high blood pressure during this ER visit?: Yes
Discharge Problem:
Alcohol withdrawal
Instructions: Alcohol withdrawal, BLOOD PRESSURE
Prescriptions:
New
lorazepam 1 mg tablet
1 mg PO Q6H PRN (Reason: alcohol withdrawal) Qty: 14 0RF
No Action
pantoprazole [Protonix] 40 mg tablet,delayed release (DR/EC)
40 mg PO DAILY 28 Days Qty: 28 0RF
ondansetron 4 mg tablet,disintegrating
4 mg PO TIDPRN PRN (Reason: nausea/vomiting) Qty: 14 0RF
Referrals:
NONE,* [Family Provider] -
Activity Restrictions/Additional Instructions:
Ativan (Lorazepam) 1mg
Today: 1-2 tab every 6 hours
Tomorrow: 1 tab every 8 hours
Wednesday 0.5 tab to 1 tab every 8 hours
: 0.5 tab every 8 hours
Wednesday: 0.5 tab if needed every 12 hours
No alcohol use. Return here if worse or other concerns.
No driving while on these medications.
Interventions
Interventions:
*Risk Screen - Suicide Last Done: 12/11/24 13:11
*General Assessment Last Done: 12/11/24 13:10
*Neglect/Abuse Screening Last Done: 12/11/24 13:11
*ED- Fall Risk Assessment Last Done: 12/11/24 13:57
*ED COVID-19 Vaccine History Last Done: 12/11/24 13:11
ED- Neurological Assessment Last Done: 12/11/24 13:57
ED-Psychological Assessment Last Done: 12/11/24 13:57
Discharge Date and Time
Print Language: WELSH
[2024-12-11] MEDS: NSS 1000 IV (14:01)
[2024-12-11 14:03] VITALS: BP 124/85
[2024-12-11 14:11] LABS: % Basophils 0.4 % (0-2); % Eosinophils 0.3 % (0-6); % Immature Granulocytes 0.3 % (0-0.5); % Lymphocytes 28.8 % (20.5-51.1); % Neutrophils 64.2 % (42.2-75.2); Absolute Basophils 0.1 10^3/uL (0-0.2); Absolute Lymphocytes 3.3 10^3/uL (1.2-3.4); Absolute Monocytes 0.7 10^3/uL (0.1-0.6); Absolute Neutrophils 7.4 10^3/uL (1.4-6.5); Hematocrit 42.4 % (37.0-47.0); Hemoglobin 14.8 g/dL (12.0-16.0); Mean Corp Hgb Conc. 34.9 g/dL (33.0-37.0); Mean Corpuscular Hgb 32.5 pg (27.0-31.0); Mean Platelet Volume 9.2 fL (7.4-10.4); Nucleated Red Blood Cells % 0 %; Platelet Count 296 10^3/uL (130-400); Red Blood Cell Count 4.56 10^6/uL (4.20-5.40); Red Cell Dist. Width 13.2 % (11.5-14.5); White Blood Cell Count 11.5 10^3/uL (4.8-10.8)
[2024-12-11 14:24] LABS: ALT (SGPT) 14 U/L (0-35); AST (SGOT) 22 U/L (14-36); Albumin 4.7 g/dl (3.5-5.0); Alkaline Phosphatase 31 U/L (38-126); Blood Urea Nitrogen 9 mg/dl (7-17); Calcium 9.2 mg/dl (8.4-10.2); Carbon Dioxide 24 mmol/L (22-30); Chloride 106 mmol/L (98-107); Glucose 106 mg/dl (70-99); Lipase 144 U/L (23-300); Potassium 3.5 mmol/L (3.5-5.1); Sodium 141 mmol/L (135-145); Total Bilirubin 0.4 mg/dl (0.2-1.3); Total Protein 7.2 g/dl (6.3-8.2); eGFR > 60.00
[2024-12-11 14:39] LABS: Alcohol 64 mg/dl
== END 2024-12-11 15:16 | disposition home or self-care (01) ==
LOC: EMR 12:49
PROVIDERS: Student in an Organized Health Care Education/Training Program; EMERGENCY PHYSICIAN Emergency Medicine
DX: F10.230 Alcohol dependence with withdrawal, uncomplicated (principal); F17.200 Nicotine dependence, unspecified, uncomplicated; R03.0 Elevated blood-pressure reading, without diagnosis of hypertension
CPT/HCPCS: 99284; 96360; 80053; 82077; 83690; 85025

== ENCOUNTER 2025-01-08 09:22 | Emergency (ER) | payer OTHER, SELFPAY ==
[2025-01-08 09:26] VITALS: BP 126/75
[2025-01-08 09:33] VITALS: BMI 21.0
--- NOTE | 2025-01-08 09:43 | ED.GENMED ---
History of Present Illness
General
Chief Complaint: Change in Mental Status
Source: patient
Exam Limitations: none
Time Seen by Provider: 01/08/25 09:30
Nursing documentation reviewed up to this point in time: agreed with
History of Present Illness
History of Present Illness:
Patient with history of substance abuse including heavy alcohol use, presents to ED secondary to waking up this morning with severe sensation of anxiety, associated with nausea and vomiting. In addition, after having had alcohol last night, patient
reports falling and hitting her head. Denies neck pain. Denies dizziness. Denies blurred vision. Denies loss of sensation or weakness. Denies difficulty with speech. Denies abdominal pain. Denies chest pain. Denies suicidal or homicidal
ideation. Patient states that she is not interested in seeking assistance with her drug abuse. Patient states that she may be experiencing withdrawal from use of Kratom
Past History
Past History
ED Past Medical History: Psychiatric (Bipolar, Anxiety) and Other (Migraine headaches)
ED Past Surgical History: Tonsilectomy (And adnoids) and Other ()
Social History
Tobacco: Smoker
Alcohol: Former
Drug: Former user
Personal: Single
Living: other (recovery house)
Employment: Employed
Family History
Family History: Other (no Significant)
Review of Systems
Review of Systems
Allergies reviewed?: Yes
All Other Systems: ROS reviewed and negative except as documented in HPI and ROS
Constitutional: Reports no symptoms
Respiratory: Reports no symptoms; Denies cough or trouble breathing
Cardiac: Reports no symptoms; Denies chest pain, palpitations or syncope
ABD/GI: Reports nausea and vomiting; Denies abdominal pain or diarrhea
: Reports no symptoms
Musculoskeletal: Reports no symptoms
Skin: Reports no symptoms
Neurological: Reports no symptoms; Denies dizzy, headache, weakness or numbness
Phy Exam
Physical Exam
Physical Exam:
Physical Exam
General: mild distress, not acutely ill. afebrile. anxious appearing
Head: nc/at. eomi
Neck: supple. normal range of motion.
Heart: s1/s2 regular rate and rhythm
Lungs: no acute respiratory distress. clear bilaterally
Abdomen: normal bowel sounds. not tender. no distention
Neuro: alert and oriented x 3. no focal neurological deficits
Skin: no rash
Psychiatric: well kept. interactive and cooperative
Extremities: no edema. no calf tenderness.
Course
Orders/Labs/Results
Orders:
Orders
01/08/25 09:25
EKG [Electrocardiogram (*1)] Stat
Reason for Study: Vertigo / Dizzy
EKG- Treatment ONCE
01/08/25 09:40
CT Head W/o Iv Contrast Urgent
Comment:
Reason For Exam: trauma
Lorazepam [Ativan] 1 mg IV NOW STA
01/08/25 09:41
Ondansetron Injectable [Zofran] 4 mg IV NOW STA
Test Result ONCE
01/08/25 09:50
Acetaminophen Urgent
Alcohol Urgent
Complete Blood Count/No Diff Urgent
Comprehensive Metabolic Panel Urgent
HCG, Serum Qualitative Screen Urgent
Comment: [place] [id number]
Salicylate Urgent
01/08/25 10:24
0.9% Sodium Chloride 500 ml [Nss] 500 ml IV BOLUS
01/08/25 10:31
Add On- LAB Urgent
Tests Added?: serum B-HCG, qualitative
01/08/25 10:44
Prochlorperazine [Compazine] 10 mg IV NOW STA
01/08/25 13:21
Lorazepam [Ativan] 1 mg PO NOW STA
Abnormal Lab Results
01/08/25
09:50
WBC 20.7 H 10^3/uL
(4.8-10.8)
MCH 33.1 H pg
(27.0-31.0)
Carbon Dioxide 20 L mmol/L
(22-30)
Glucose 118 H mg/dl
(70-99)
Albumin 5.6 H g/dl
(3.5-5.0)
Salicylates < 1.0 L mg/dl
(2.0-20.0)
Acetaminophen < 10 L ug/ml
(10-30)
01/08/25 09:50
01/08/25 09:50
Vital Signs
Initial and Last Documented VS:
Initial Vital Signs
Pulse Resp BP Pulse Ox
63 24 126/75 93
01/08/25 09:26 01/08/25 09:26 01/08/25 09:26 01/08/25 09:26
Last Documented Vital Signs
Temp Pulse Resp BP Pulse Ox
97.7 F 69 21 124/67 97
01/08/25 11:06 01/08/25 13:30 01/08/25 13:29 01/08/25 13:29 01/08/25 11:45
MDM/Problems Addressed
MDM/Problems Addressed:
Patient reports significant improvement symptoms after treatment. Patient otherwise remains afebrile, hemodynamically stable, and nontoxic-appearing. Reviewed the blood work results with patient, including leukocytosis. However, patient denies
being ill recently, and states that her symptoms started only this morning. She feels comfortable going home at this time, and does not wish to receive any further workup. As such, decision made to discharge patient home at this time, to the care
of her friend. Advised PCP follow-up as an outpatient, or consider returning to ED with worsening symptoms. Patient expresses understanding at time of discharge.
*EKG
Interpreted by ED Provider?: Yes
EKG Intrepretation Date: 01/08/25
*Critical Care Note
Total Time (30-74mins, 75-104mins- exclusive of procedures): Not Applicable
ED Attending Note
-
Portions of this chart may have been created with voice recognition software.� Occasional wrong word or��sound alike� substitutions may have occurred due to the inherent limitations of voice recognition software.
Discharge Plan
Departure
Patient Disposition: Home (Routine Discharge)
Date of Disposition: 01/08/25
Time of Disposition: 13:22
Patient with high blood pressure during this ER visit?: Yes
Condition: Good
Discharge Problem:
Substance abuse withdrawal
Instructions: Drug Withdrawal (DC)
Prescriptions:
New
ondansetron 4 mg Tablet,Disintegrating
4 mg PO TIDPRN PRN (Reason: nausea/vomiting) Qty: 12 0RF
No Action
pantoprazole [Protonix] 40 mg tablet,delayed release (DR/EC)
40 mg PO DAILY 28 Days Qty: 28 0RF
ondansetron 4 mg tablet,disintegrating
4 mg PO TIDPRN PRN (Reason: nausea/vomiting) Qty: 14 0RF
lorazepam 1 mg tablet
1 mg PO Q6H PRN (Reason: alcohol withdrawal) Qty: 14 0RF
Referrals:
UNKNOWN,NO INTERVIEW [Family Provider]
Activity Restrictions/Additional Instructions:
As discussed, please follow-up with your primary care physician and/or outpatient rehab facility for continual evaluation and treatment. Your prescription has been sent electronically to [facility] pharmacy in [place].
Interventions
Interventions:
*Risk Screen - Suicide Last Done: 01/08/25 13:42
*General Assessment Last Done: 01/08/25 09:38
*Neglect/Abuse Screening Last Done: 01/08/25 13:42
*ED- Fall Risk Assessment Last Done: 01/08/25 09:34
*ED COVID-19 Vaccine History Last Done: 01/08/25 09:34
*Nursing Disposition Last Done: 01/08/25 14:19
ED-Psychological Assessment Last Done: 01/08/25 13:44
ED- Neurological Assessment Last Done: 01/08/25 11:44
ED Swallowing Screen Last Done: 01/08/25 13:38
Discharge Date and Time
Discharge Date/Time: 01/08/25 13:45
Print Language: [place] CITIZEN
[2025-01-08] MEDS: ZOFRAN 4 MG IV (09:45)
[2025-01-08] MEDS: ATIVAN 1 MG IV (09:45)
[2025-01-08 10:05] LABS: Hematocrit 43.9 % (37.0-47.0); Hemoglobin 15.4 g/dL (12.0-16.0); Mean Corp Hgb Conc. 35.1 g/dL (33.0-37.0); Mean Corpuscular Hgb 33.1 pg (27.0-31.0); Mean Corpuscular Volume 94.4 fL (81.0-99.0); Mean Platelet Volume 9.9 fL (7.4-10.4); Platelet Count 341 10^3/uL (130-400); Red Blood Cell Count 4.65 10^6/uL (4.20-5.40); Red Cell Dist. Width 13.2 % (11.5-14.5); White Blood Cell Count 20.7 10^3/uL (4.8-10.8)
[2025-01-08 10:25] LABS: ALT (SGPT) 22 U/L (0-35); AST (SGOT) 33 U/L (14-36); Acetaminophen < 10 ug/ml (10-30); Albumin 5.6 g/dl (3.5-5.0); Alkaline Phosphatase 45 U/L (38-126); Blood Urea Nitrogen 13 mg/dl (7-17); Calcium 9.3 mg/dl (8.4-10.2); Carbon Dioxide 20 mmol/L (22-30); Chloride 105 mmol/L (98-107); Estimated Creatinine Clearance 115 ml/min; Glucose 118 mg/dl (70-99); Potassium 3.8 mmol/L (3.5-5.1); Salicylate < 1.0 mg/dl (2.0-20.0); Sodium 140 mmol/L (135-145); Total Bilirubin 0.7 mg/dl (0.2-1.3); Total Protein 7.9 g/dl (6.3-8.2); eGFR > 60.00
[2025-01-08 10:26] LABS: Alcohol None Detected
[2025-01-08 10:55] LABS: HCG, Serum Qualitative Screen Negative
[2025-01-08] MEDS: COMPAZINE 10 MG IV (11:00)
[2025-01-08] MEDS: NSS 500 IV (11:03)
[2025-01-08] MEDS: ATIVAN 1 MG PO (13:27)
[2025-01-08 13:29] VITALS: BP 124/67
== END 2025-01-08 13:45 | disposition home or self-care (01) ==
LOC: EMR 09:22
PROVIDERS: EMERGENCY PHYSICIAN Emergency Medicine
DX: F19.10 Other psychoactive substance abuse, uncomplicated (principal); F31.9 Bipolar disorder, unspecified; F41.9 Anxiety disorder, unspecified; F17.200 Nicotine dependence, unspecified, uncomplicated
CPT/HCPCS: 99284; 96374; 96375; 96361; 70450; 80053; 80143; 80179; 82077; 84703; 85027; 93005

== ENCOUNTER 2025-05-08 11:02 | Emergency (ER) | payer OTHER, SELFPAY ==
[2025-05-08 11:03] VITALS: BP 125/93
[2025-05-08] MEDS: ATIVAN 0.5 MG PO (13:55)
[2025-05-08 14:01] LABS: Urine Character Slightly Cloudy (Clear)
--- NOTE | 2025-05-08 14:01 | ED.GENMED ---
History of Present Illness
General
Chief Complaint: Crisis Evaluation
Time Seen by Provider: 05/08/25 11:48
History of Present Illness
History of Present Illness:
39-year-old female with reported history of anxiety, notes that she is on the spectrum, presenting to the emergency department for increased anxiety. Patient presents from [facility] where she was rehabbing from [facility]. She notes that today she
became acutely anxious and did not feel like the facility was equipped to handle her. Patient became agitated, staff involved and police were called as brought to the hospital. Patient is looking for inpatient treatment. She is having difficulty
handling her emotions. Last dose of kratom was today, however prior to that had not had 4 weeks. Denies acute medical complaint such as chest pain or difficulty breathing. Denies any SI or HI
Past History
Past History
ED Past Medical History: Psychiatric (Bipolar, Anxiety) and Other (Migraine headaches)
ED Past Surgical History: Tonsilectomy (And adnoids) and Other ()
Social History
Tobacco: Smoker
Alcohol: Former
Drug: Former user
Personal: Single
Living: other ([facility])
Employment: Employed
Family History
Family History: Other (no Significant)
Phy Exam
Physical Exam
Physical Exam:
General: Well-appearing, no clinical signs of dehydration, nontoxic and in no acute distress
HEENT: protecting airway
Neck: appears supple
CV: Normal heart rate
Resp: No accessory muscle use, no increased work of breathing
Abd: Nondistended
Extremities: No deformities, no swelling
Neuro: alert, no focal neurologic deficit
: deferred
Rectal: deferred
Psych: Tangential thoughts and speech, rapid speech
Skin: Intact
Course
Orders/Labs/Results
Orders:
Orders
05/08/25 11:42
Crisis Consult Urgent
Reason for Consult: hallucinations
05/08/25 12:57
Lorazepam [Ativan] 0.5 mg PO NOW STA
Test Result ONCE
05/08/25 13:51
, Urine Qualitative Screen [HCG, Urine Qualitative Screen] Urgent
Date Specimen was Collected: 05/08/25
Time Specimen was Collected: 13:45
Urinalysis Reflex To Culture Urgent
Date Specimen was Collected: 05/08/25
Time Specimen was Collected: 13:46
Urine Drug Abuse Screen Urgent
Date Specimen was Collected: 05/08/25
Time Specimen was Collected: 13:45
Vital Signs
Initial and Last Documented VS:
Initial Vital Signs
Temp Pulse Resp BP Pulse Ox
98.2 F 116 20 125/93 97
05/08/25 11:03 05/08/25 11:03 05/08/25 11:03 05/08/25 11:03 05/08/25 11:03
Last Documented Vital Signs
Temp Pulse Resp BP Pulse Ox
98.2 F 116 20 125/93 97
05/08/25 11:03 05/08/25 11:03 05/08/25 11:03 05/08/25 11:03 05/08/25 11:03
MDM/Problems Addressed
MDM/Problems Addressed:
39-year-old female with history of anxiety and substance abuse with kratom presenting to the emergency department for increased anxiety. Vital signs on arrival significant for mild tachycardia.
On exam patient is in no acute distress. She has tangential speech, pressured speech, however does not presently appear to be in acute psychosis or threat to herself or others. Crisis consulted, given the patient is requesting inpatient treatment.
No grounds for 302. Patient denies any acute medical complaints, without indication for advanced medical workup.
14:00 - In discussion with crisis, will do a bed search
*Pulse Oximetry
SaO2: 97
Oxygen Mode of Delivery: Room air
Patient hypoxic: no
*Critical Care Note
Total Time (30-74mins, 75-104mins- exclusive of procedures): Not Applicable
ED Attending Note
-
Portions of this chart may have been created with voice recognition software.� Occasional wrong word or��sound alike� substitutions may have occurred due to the inherent limitations of voice recognition software.
Discharge Plan
Departure
Prescriptions:
No Action
pantoprazole [Protonix] 40 mg tablet,delayed release (DR/EC)
40 mg PO DAILY 28 Days Qty: 28 0RF
ondansetron 4 mg tablet,disintegrating
4 mg PO TIDPRN PRN (Reason: nausea/vomiting) Qty: 14 0RF
lorazepam 1 mg tablet
1 mg PO Q6H PRN (Reason: alcohol withdrawal) Qty: 14 0RF
ondansetron 4 mg Tablet,Disintegrating
4 mg PO TIDPRN PRN (Reason: nausea/vomiting) Qty: 12 0RF
Referrals:
UNKNOWN - PT DOES,NOT KNOW [Family Provider]
Interventions
Interventions:
*Risk Screen - Suicide Last Done: 05/08/25 11:03
*General Assessment Last Done: 05/08/25 11:03
Discharge Date and Time
Print Language: ALBANIAN
[2025-05-08 14:07] LABS: Urine Squamous Cell >30 /LPF (Few)
[2025-05-08 14:11] LABS: HCG, Urine Qualitative Screen Negative
[2025-05-08 17:46] VITALS: BP 122/88
== END 2025-05-08 17:47 ==
LOC: EMR 11:02
PROVIDERS: EMERGENCY PHYSICIAN Student in an Organized Health Care Education/Training Program
DX: F41.9 Anxiety disorder, unspecified (principal); F17.200 Nicotine dependence, unspecified, uncomplicated; F31.9 Bipolar disorder, unspecified
CPT/HCPCS: 99285; 80306; 80307; 81003; 81015; 81025; 87086